=== PATIENT | female | born 1970 | race Caucasian/White ===

== ENCOUNTER → 2016-12-26 | Day surgery (SDC) | payer MEDICARE ==
[~2016-12-26] MED LIST: ALBUTEROL20 ml INH; HYDROCHLOROTHIA25 MG PO; LIPITOR PO; NEURONTIN300 MG PO; NEXIUM PO; OXYCONTIN10 MG PO; SYMBICORT80 INH; ZANAFLEX4 M1 PO
--- NOTE | ~2016-12-26 | OR ---
Unit #: [id number] #: [id number] Patient: MAITE GONZALEZ [id number] [address] [address] [id number] O MR#: [id number] NAME: MAITE GONZALEZ ROOM: Date of Procedure: 12/26/2016 Admission Date: 12/26/2016 Surgeon: Luis Hutchins M.D. : 1970 Attending Physician: Luis Hutchins M.D. Primary Care Physician: Kaity Weber Aprn OPERATIVE REPORT PREOPERATIVE DIAGNOSES 1. Back pain. 2. Radiculopathy. 3. Degenerative disk disease. 4. Spondylosis. 5. Lumbar spinal stenosis. POSTOPERATIVE DIAGNOSES 1. Back pain. 2. Radiculopathy. 3. Degenerative disk disease. 4. Spondylosis. 5. Lumbar spinal stenosis. PROCEDURE PERFORMED Lumbar epidural steroid injection with intravenous sedation and fluoroscopic guidance for needle localization. INDICATIONS FOR PROCEDURE The patient is a 46-year-old female with worsening back and bilateral lower extremity pain. This has been worsened over many years. She was treated in the past in intermittent state with epidural steroids and medications. We were able to improve her symptom control and increase in her Neurontin and starting Zanaflex, still has radiculopathy though. In the past, she done well for several weeks with a single injection. We will trial a small series of 2 injections if this does give her better longer lasting improvement. DESCRIPTION OF PROCEDURE The patient was placed in a seated position. Standard monitors were applied. 2 mg of Versed were given for sedation and anxiolysis, which were adequate. Vital signs remained stable. Sterile prep and drape then of the lumbar area was performed. The skin at the L4-L5 level was localized with 1% lidocaine. An 18-gauge Verivuetead needle was then advanced via loss of resistance technique and fluoroscopic guidance in toward the epidural space. After confirming proper positioning with fluoroscopy and radiographic contrast, 80 mg of Depo-Medrol and 2 mL of 0.125% bupivacaine were deposited. The patient tolerated the procedure well and some moderate repeat production of her pain during the injection phase, which quickly abated. She was discharged to the recovery room in stable condition. Unit #: [id number] #: [id number] Patient: MAITE GONZALEZ Dictated by... Swati Vargas/ella TD: 12/26/2016 21:58 JOB #: [id number] OPERATIVE REPORT X Luis Hutchins MD X PROCEDURE OPERATIVE NOTE
== END | disposition home or self-care (01) ==
LOC: CCSC 07:29
DX: M51.16 Intervertebral disc disorders with radiculopathy, lumbar region (principal); M47.26 Other spondylosis with radiculopathy, lumbar region; M48.06 Spinal stenosis, lumbar region; I10 Essential (primary) hypertension; J45.909 Unspecified asthma, uncomplicated; K21.9 Gastro-esophageal reflux disease without esophagitis; F41.9 Anxiety disorder, unspecified; Z79.899 Other long term (current) drug therapy
CPT/HCPCS: J1040; J2250

== ENCOUNTER → 2017-01-02 | Day surgery (SDC) | payer MEDICARE ==
--- NOTE | ~2017-01-02 | OR ---
Unit #: [id number] #: [id number] Patient: MAITE GONZALEZ [id number] [address] [place], [place] [address] [id number] O MR#: [id number] NAME: MAITE GONZALEZ ROOM: Date of Procedure: 01/02/2017 Admission Date: 01/02/2017 Surgeon: Luis Hutchins M.D. : 1970 Attending Physician: Luis Hutchins M.D. Primary Care Physician: Kaity Weber Aprn OPERATIVE REPORT PREOPERATIVE DIAGNOSES Herniated nucleus pulposus, spinal stenosis, lumbar facet disease, back pain, radiculopathy. POSTOPERATIVE DIAGNOSES Herniated nucleus pulposus, spinal stenosis, lumbar facet disease, back pain, radiculopathy. PROCEDURE PERFORMED Lumbar epidural steroid injection with intravenous sedation and fluoroscopic guidance for needle localization. INDICATIONS FOR PROCEDURE The patient is a 46-year-old female with back and bilateral lower extremity pains which are worsening and not settled with the patient's conservative measures. In the past, single epidural steroid injections gave her several weeks of improvement, but not with prolonged improvement. The patient had a repeat single injection done last week, which resulted in greater than 50% improvement in the back and leg issues. We are going to proceed with a second injection to see if we can overall get a longer response by doing this many series of injections. Risks and benefits of all have been reviewed. DESCRIPTION OF PROCEDURE The patient was placed in a seated position. Standard monitors were applied. 2 mg of Versed were given for sedation and anxiolysis, which were adequate. Vital signs remained stable. A sterile prep and drape then of the lumbar area was performed. The skin then at the L4-5 level was localized with 1% lidocaine. An 18-gauge [employer]ead needle was then advanced via loss of resistance technique and fluoroscopic guidance in toward the epidural space. After confirming proper positioning with fluoroscopy and radiographic contrast, a dose of 80 mg of Depo-Medrol and 4 mL of 0.125% bupivacaine were deposited. The patient tolerated this part of procedure well. Last week, the patient definitely had more discomfort during the injection. She had mild discomfort at best with the injection today. Dictated by... Luis Hutchins M.D. P/modl Unit #: [id number] #: [id number] Patient: MAITE GONZALEZ TD: 01/02/2017 08:32 JOB #: [id number] OPERATIVE REPORT X Luis Hutchins MD X PROCEDURE OPERATIVE NOTE
== END | disposition home or self-care (01) ==
LOC: CCSC 06:44
DX: M51.16 Intervertebral disc disorders with radiculopathy, lumbar region (principal); M48.06 Spinal stenosis, lumbar region; I10 Essential (primary) hypertension; K21.9 Gastro-esophageal reflux disease without esophagitis; J45.909 Unspecified asthma, uncomplicated
CPT/HCPCS: J1040; J2250